=== PATIENT | female | born 2000 | race African-American/Black ===

== ENCOUNTER 2022-07-15 20:19 | Emergency (ER) | payer MEDICAID ==
[~2022-07-15] VITALS: Ht 165.1 cm; Wt 89.6 kg
[2022-07-16 04:00] VITALS: BP 121/71
== END 2022-07-16 04:23 | disposition home or self-care (01) ==
LOC: ER 20:19
DX: F41.9 Anxiety disorder, unspecified (principal); I49.9 Cardiac arrhythmia, unspecified
CPT/HCPCS: 93005; 99283; Z7610